=== PATIENT | male | born 1975 | race African-American/Black ===

== ENCOUNTER 2021-04-25 18:26 | Inpatient (IN) ==
[2021-04-25] MEDS ORDERED: Isovue-370 500 ML BOTTLE IVP ONE (21:18)
[2021-04-25 21:44] LABS: Basophils % 0.2 %; Eosinophils # 0.1 K/mcL (0.0-0.6); Eosinophils % 0.6 %; Hematocrit 28.6 % (37.5-50.1); Immature Granulocytes % 0.8 % (0-4); Lymphocytes # 1.3 K/mcL (0.6-4.6); Lymphocytes % 8.3 %; Mean Corpuscular HGB Conc 31.5 g/dL (31.6-35.5); Mean Corpuscular Hemoglobin 27.8 pg (28.0-33.3); Mean Corpuscular Volume 88.3 fL (83.0-100.0); Mean Platelet Volume 10.3 fL (9.4-12.4); Monocytes # 1.6 K/mcL (0.0-1.3); Monocytes % 10.1 %; Neutrophils # 12.6 K/mcL (1.6-8.9); Platelet Count 244 K/mcL (140-400); Red Blood Count 3.24 M/mcL (4.19-5.50); Red Cell Distribution Width 13.3 % (11.5-14.5)
[2021-04-25 21:46] LABS: White Blood Count 15.8 K/mcL (4.3-11.1)
[2021-04-25] MEDS ORDERED: 0.9 % Sodium Chloride 1,000 ML IVC ONE (21:58)
[2021-04-25] MEDS ORDERED: Ondansetron 4 MG/2 ML VIAL IVP ONE (21:58)
[2021-04-25] MEDS ORDERED: Morphine Sulfate 2 MG/ML SYRINGE IVP ONE (21:58)
[2021-04-25 22:06] LABS: Albumin 4.1 g/dL (3.5-5.7); Albumin/Globulin Ratio 0.8 (1.1-2.2); Bilirubin,Indirect 0.2 mg/dL (0.0-1.0); Bilirubin,Total 0.2 mg/dL (0.3-1.0); Calcium 9.3 mg/dL (8.6-10.3); Globulin 4.9 g/dL (2.4-3.5); Potassium 4.2 mEq/L (3.5-5.1)
[2021-04-25] MEDS ORDERED: MetroNIDAZOLE 500 MG/100 ML 500 MG/100 ML BAG IVPB ONE (23:41)
[2021-04-26] MEDS ORDERED: Naloxone 0.4 MG/ML INJ IVP PRN (00:13)
[2021-04-26] MEDS ORDERED: D5% in Water 1,000 ML IVC PRN (00:17)
[2021-04-26] MEDS ORDERED: Dextrose Gel 15 GM/37.5 ML TUBE PO PRN ×2 (00:17)
[2021-04-26] MEDS ORDERED: *HR* Dextrose 50 % in Water (Syg) 50 ML SYRINGE IVP PRN (00:17)
[2021-04-26] MEDS: Morphine Sulfate 2 MG/ML SYRINGE IVP PRN ×3 (02:53→20:40)
[2021-04-26] MEDS: Insulin LISPRO 300 UNITS/3 ML VIAL SUBQ SCH ×5 (02:54→20:31)
[2021-04-26] MEDS: 0.9 % Sodium Chloride 1,000 ML IVC SCH ×2 (03:01→11:15)
[2021-04-26 03:29] LABS: Bilirubin,Urine Negative (Negative); Blood,Urine Small (Negative); Clarity,Urine Clear (Clear); Color,Urine Colorless (Yellow); Glucose,Urine (UA) >=1000 mg/dL (Normal); Ketones,Urine Negative (Negative); Leukocyte Esterase,Urine Negative (Negative); Mucus,Urine Few per lpf (None-Few); Nitrite,Urine Negative (Negative); Protein,Urine 100 mg/dL (Neg-Trace); RBC,Urine 0-3 per hpf (0-3); Specific Gravity,Urine 1.023 (1.010-1.025); Urobilinogen,Urine Normal (Normal); WBC,Urine 0-3 per hpf (0-3)
[2021-04-26 04:31] LABS: Basophils % 0.1 %; Eosinophils % 0.1 %; Hematocrit 25.8 % (37.5-50.1); Hemoglobin 8.1 g/dL (12.9-16.9); Immature Granulocytes % 0.6 % (0-4); Lymphocytes # 1.6 K/mcL (0.6-4.6); Lymphocytes % 10.2 %; Mean Corpuscular HGB Conc 31.4 g/dL (31.6-35.5); Mean Corpuscular Hemoglobin 27.7 pg (28.0-33.3); Mean Corpuscular Volume 88.4 fL (83.0-100.0); Mean Platelet Volume 10.1 fL (9.4-12.4); Monocytes # 1.3 K/mcL (0.0-1.3); Monocytes % 8.7 %; Neutrophils # 12.3 K/mcL (1.6-8.9); Platelet Count 213 K/mcL (140-400); Red Blood Count 2.92 M/mcL (4.19-5.50); Red Cell Distribution Width 13.3 % (11.5-14.5); Segmented Neutrophils % 80.3 %; White Blood Count 15.3 K/mcL (4.3-11.1)
[2021-04-26 04:43] LABS: INR 1.3
[2021-04-26 04:48] LABS: Calcium 8.5 mg/dL (8.6-10.3); Magnesium 1.6 mg/dL (1.6-2.6); Potassium 3.9 mEq/L (3.5-5.1)
[2021-04-26 06:13] LABS: Estimated Average Glucose 272 mg/dl; Hemoglobin A1C 11.1 %
[2021-04-26] MEDS: MetroNIDAZOLE 500 MG/100 ML 500 MG/100 ML BAG IVPB SCH ×3 (08:13→23:08)
[2021-04-26] MEDS: Metoprolol XL (24 HR) Succ 25 MG TAB.ER.24H PO SCH ×2 (10:23→20:32)
[2021-04-26] MEDS: Ondansetron 4 MG/2 ML VIAL IVP PRN (16:23)
[2021-04-27 05:51] LABS: Basophils % 0.1 %; Eosinophils # 0.2 K/mcL (0.0-0.6); Eosinophils % 1.1 %; Hematocrit 23.8 % (37.5-50.1); Hemoglobin 7.7 g/dL (12.9-16.9); Immature Granulocytes % 0.4 % (0-4); Lymphocytes # 1.9 K/mcL (0.6-4.6); Lymphocytes % 13.8 %; Mean Corpuscular HGB Conc 32.4 g/dL (31.6-35.5); Mean Corpuscular Hemoglobin 28.3 pg (28.0-33.3); Mean Corpuscular Volume 87.5 fL (83.0-100.0); Monocytes # 1.7 K/mcL (0.0-1.3); Monocytes % 12.3 %; Neutrophils # 9.7 K/mcL (1.6-8.9); Platelet Count 200 K/mcL (140-400); Red Blood Count 2.72 M/mcL (4.19-5.50); Segmented Neutrophils % 72.3 %; White Blood Count 13.4 K/mcL (4.3-11.1)
[2021-04-27 06:16] LABS: Calcium 8.3 mg/dL (8.6-10.3); Magnesium 1.7 mg/dL (1.6-2.6); Potassium 3.7 mEq/L (3.5-5.1)
[2021-04-27] MEDS: Insulin LISPRO 300 UNITS/3 ML VIAL SUBQ SCH ×4 (08:24→21:36)
[2021-04-27] MEDS: MetroNIDAZOLE 500 MG/100 ML 500 MG/100 ML BAG IVPB SCH ×3 (08:24→23:01)
[2021-04-27] MEDS: gemfibroziL 600 MG TABLET PO SCH ×2 (08:35→20:48)
[2021-04-27] MEDS: Metoprolol XL (24 HR) Succ 50 MG TAB.ER.24H PO SCH (08:35)
[2021-04-27] MEDS: Ondansetron 4 MG/2 ML VIAL IVP PRN (18:51)
[2021-04-27] MEDS ORDERED: Acetaminophen 325 MG TABLET PO PRN (20:42)
[2021-04-28 04:42] LABS: Basophils % 0.2 %; Eosinophils # 0.2 K/mcL (0.0-0.6); Eosinophils % 2.1 %; Hemoglobin 7.9 g/dL (12.9-16.9); Immature Granulocytes % 0.5 % (0-4); Lymphocytes # 1.9 K/mcL (0.6-4.6); Lymphocytes % 16.8 %; Mean Corpuscular HGB Conc 32.9 g/dL (31.6-35.5); Mean Corpuscular Hemoglobin 28.3 pg (28.0-33.3); Mean Platelet Volume 9.9 fL (9.4-12.4); Monocytes # 1.3 K/mcL (0.0-1.3); Monocytes % 11.4 %; Neutrophils # 7.6 K/mcL (1.6-8.9); Platelet Count 208 K/mcL (140-400); Red Blood Count 2.79 M/mcL (4.19-5.50); Red Cell Distribution Width 12.8 % (11.5-14.5); White Blood Count 11.1 K/mcL (4.3-11.1)
[2021-04-28 04:46] LABS: BUN/Creatinine Ratio 14 (6-26); Blood Urea Nitrogen 21 mg/dL (6-20); Calcium 8.5 mg/dL (8.6-10.3); Carbon Dioxide 19 mEq/L (23-29); Chloride 106 mEq/L (98-107); Glucose 132 mg/dL (70-105); Osmolality,Calculated 283 (280-300); Potassium 3.6 mEq/L (3.5-5.1); Sodium 134 mEq/L (136-145); eGFR For African Americans > 60 (> 60); eGFR For Non-African Americans 51 (> 60)
[2021-04-28] MEDS: Insulin LISPRO 300 UNITS/3 ML VIAL SUBQ SCH ×4 (08:43→20:52)
[2021-04-28] MEDS: gemfibroziL 600 MG TABLET PO SCH ×2 (08:44→20:55)
[2021-04-28] MEDS: MetroNIDAZOLE 500 MG/100 ML 500 MG/100 ML BAG IVPB SCH ×3 (08:44→23:58)
[2021-04-28] MEDS: Metoprolol XL (24 HR) Succ 50 MG TAB.ER.24H PO SCH (08:46)
[2021-04-29 02:38] LABS: Basophils % 0.3 %; Eosinophils # 0.2 K/mcL (0.0-0.6); Eosinophils % 2.3 %; Hemoglobin 8.1 g/dL (12.9-16.9); Immature Granulocytes % 0.5 % (0-4); Lymphocytes % 19.1 %; Mean Corpuscular HGB Conc 32.4 g/dL (31.6-35.5); Mean Corpuscular Hemoglobin 27.8 pg (28.0-33.3); Mean Corpuscular Volume 85.9 fL (83.0-100.0); Mean Platelet Volume 10.1 fL (9.4-12.4); Monocytes # 1.2 K/mcL (0.0-1.3); Monocytes % 11.3 %; Platelet Count 244 K/mcL (140-400); Red Blood Count 2.91 M/mcL (4.19-5.50); Red Cell Distribution Width 12.9 % (11.5-14.5); Segmented Neutrophils % 66.5 %; White Blood Count 10.5 K/mcL (4.3-11.1)
[2021-04-29 02:57] LABS: BUN/Creatinine Ratio 16 (6-26); Blood Urea Nitrogen 23 mg/dL (6-20); Calcium 8.7 mg/dL (8.6-10.3); Carbon Dioxide 18 mEq/L (23-29); Chloride 104 mEq/L (98-107); Glucose 123 mg/dL (70-105); Osmolality,Calculated 283 (280-300); Potassium 3.7 mEq/L (3.5-5.1); Sodium 134 mEq/L (136-145); eGFR For African Americans > 60 (> 60); eGFR For Non-African Americans 52 (> 60)
[2021-04-29] MEDS: Insulin LISPRO 300 UNITS/3 ML VIAL SUBQ SCH ×4 (08:01→21:20)
[2021-04-29] MEDS: gemfibroziL 600 MG TABLET PO SCH ×2 (08:01→21:10)
[2021-04-29] MEDS: Metoprolol XL (24 HR) Succ 50 MG TAB.ER.24H PO SCH (08:01)
[2021-04-29] MEDS: MetroNIDAZOLE 500 MG/100 ML 500 MG/100 ML BAG IVPB SCH (08:01)
[2021-04-29 11:26] LABS: Adenovirus F 40/41 PCR Not detected (Not detect); Astrovirus PCR Not detected (Not detect); Campylobacter by PCR Not detected (Not detect); Cryptosporidium by PCR Not detected (Not detect); Cyclospora cayetanensis PCR Not detected (Not detect); E. coli O157 by PCR Not detected (Not detect); Entamoeba histolytica PCR Not detected (Not detect); Enteroaggregative E.coli(EAEC) Not detected (Not detect); Enteropathogenic E.coli(EPEC) Not detected (Not detect); Enterotoxigenic E.coli (ETEC) Not detected (Not detect); Giardia lamblia PCR Not detected (Not detect); Norovirus GI/GII PCR Not detected (Not detect); Plesiomonas shigelloides PCR Not detected (Not detect); Rotavirus A PCR Not detected (Not detect); Salmonella PCR Not detected (Not detect); Sapovirus PCR Not detected (Not detect); Shig/EnteroinvasiveE coli EIEC Not detected (Not detect); Shigalike tox-prod E coli STEC Not detected (Not detect); Vibrio PCR Not detected (Not detect); Vibrio cholerae PCR Not detected (Not detect); Yersinia enterocolitica PCR Not detected (Not detect)
[2021-04-29 11:28] LABS: C.difficile Toxin A/B Gene PCR DETECTED (Not detect)
[2021-04-29] MEDS: Vancomycin Oral Soln 125 MG/2.5 ML UDC PO SCH ×4 (12:04→21:11)
[2021-04-30 06:30] LABS: Basophils % 0.2 %; Eosinophils # 0.2 K/mcL (0.0-0.6); Eosinophils % 2.7 %; Hematocrit 26.1 % (37.5-50.1); Hemoglobin 8.3 g/dL (12.9-16.9); Immature Granulocytes % 0.6 % (0-4); Lymphocytes # 1.9 K/mcL (0.6-4.6); Lymphocytes % 21.2 %; Mean Corpuscular HGB Conc 31.8 g/dL (31.6-35.5); Mean Corpuscular Hemoglobin 26.9 pg (28.0-33.3); Mean Corpuscular Volume 84.7 fL (83.0-100.0); Mean Platelet Volume 9.6 fL (9.4-12.4); Monocytes # 1.1 K/mcL (0.0-1.3); Monocytes % 12.6 %; Neutrophils # 5.5 K/mcL (1.6-8.9); Platelet Count 247 K/mcL (140-400); Red Blood Count 3.08 M/mcL (4.19-5.50); Red Cell Distribution Width 13.1 % (11.5-14.5); Segmented Neutrophils % 62.7 %; White Blood Count 8.7 K/mcL (4.3-11.1)
[2021-04-30 06:53] LABS: BUN/Creatinine Ratio 15 (6-26); Blood Urea Nitrogen 20 mg/dL (6-20); Calcium 8.7 mg/dL (8.6-10.3); Carbon Dioxide 19 mEq/L (23-29); Chloride 104 mEq/L (98-107); Glucose 175 mg/dL (70-105); Osmolality,Calculated 281 (280-300); Potassium 3.7 mEq/L (3.5-5.1); Sodium 132 mEq/L (136-145); eGFR For African Americans > 60 (> 60); eGFR For Non-African Americans 58 (> 60)
[2021-04-30 08:13] VITALS: BP 141/93; PULSE 99; TEMP 98; O2SAT 94
[2021-04-30] MEDS: gemfibroziL 600 MG TABLET PO SCH (08:32)
[2021-04-30] MEDS: Vancomycin Oral Soln 125 MG/2.5 ML UDC PO SCH (08:32)
[2021-04-30] MEDS: Metoprolol XL (24 HR) Succ 50 MG TAB.ER.24H PO SCH (08:32)
[2021-04-30] MEDS: Insulin LISPRO 300 UNITS/3 ML VIAL SUBQ SCH (08:32)
== END 2021-04-30 11:23 | disposition home or self-care (01) | DRG 872 ==
LOC: EMEROOARM 18:26 → 3ANU 18:26 → OBSVTOIN 04-26 00:11 → SUATTDRO 04-26 00:11 → 3ANU 04-26 00:37
PROVIDERS: ADMIT Student in an Organized Health Care Education/Training Program; ATTEND Internal Medicine

== ENCOUNTER 2021-07-16 05:21 | Observation (INO) ==
[2021-07-16 06:28] LABS: Basophils % 0.1 %; Hematocrit 30.4 % (37.5-50.1); Hemoglobin 9.5 g/dL (12.9-16.9); Immature Granulocytes % 1.2 % (0-4); Lymphocytes # 1.7 K/mcL (0.6-4.6); Lymphocytes % 8.1 %; Mean Corpuscular HGB Conc 31.3 g/dL (31.6-35.5); Mean Corpuscular Hemoglobin 25.5 pg (28.0-33.3); Mean Corpuscular Volume 81.7 fL (83.0-100.0); Mean Platelet Volume 10.2 fL (9.4-12.4); Monocytes # 2.6 K/mcL (0.0-1.3); Monocytes % 12.3 %; Neutrophils # 16.4 K/mcL (1.6-8.9); Platelet Count 254 K/mcL (140-400); Red Blood Count 3.72 M/mcL (4.19-5.50); Red Cell Distribution Width 13.7 % (11.5-14.5); Segmented Neutrophils % 78.3 %
[2021-07-16 06:29] LABS: White Blood Count 20.9 K/mcL (4.3-11.1)
[2021-07-16 06:39] LABS: BUN/Creatinine Ratio 14 (6-26); Blood Urea Nitrogen 23 mg/dL (6-20); Carbon Dioxide 12 mEq/L (23-29); Chloride 104 mEq/L (98-107); Glucose 366 mg/dL (70-105); Osmolality,Calculated 271 (280-300); Potassium 4.9 mEq/L (3.5-5.1); Sodium 121 mEq/L (136-145); eGFR For African Americans 56 (> 60); eGFR For Non-African Americans 47 (> 60)
[2021-07-16] MEDS ORDERED: 0.9 % Sodium Chloride 1,000 ML IVC ONE ×2 (07:46→09:24)
[2021-07-16] MEDS ORDERED: Ondansetron 4 MG/2 ML VIAL IVP ONE (07:46)
[2021-07-16 08:52] LABS: Influenza A PCR Negative (Negative); Influenza B PCR Negative (Negative); Resp. Syncytial Virus PCR Negative (Negative); SARS-CoV-2 by PCR (In House) Negative (Negative)
[2021-07-16 10:18] LABS: Alanine Aminotransferase < 3 Units/L (7-52); Albumin 3.9 g/dL (3.5-5.7); Albumin/Globulin Ratio 0.8 (1.1-2.2); Alkaline Phosphatase 44 Units/L (34-104); Aspartate Amino Transferase 16 Units/L (13-39); Bilirubin,Direct 0.1 mg/dL (0.0-0.2); Bilirubin,Indirect 0.2 mg/dL (0.0-1.0); Bilirubin,Total 0.3 mg/dL (0.3-1.0); Globulin 5.2 g/dL (2.4-3.5); Total Protein 9.1 g/dL (6.4-8.9)
[2021-07-16 10:50] LABS: Bilirubin,Urine Negative (Negative); Blood,Urine Moderate (Negative); Clarity,Urine Clear (Clear); Color,Urine Light-Yellow (Yellow); Glucose,Urine (UA) >=1000 mg/dL (Normal); Hyaline Casts,Urine Moderate per lpf (None Seen); Ketones,Urine 20 mg/dL (Negative); Leukocyte Esterase,Urine Negative (Negative); Nitrite,Urine Negative (Negative); Protein,Urine >=300 mg/dL (Neg-Trace); Squamous Epithelial Cell,Urine Few per hpf (None-Few); Urobilinogen,Urine Normal (Normal); WBC,Urine 0-3 per hpf (0-3)
[2021-07-16] MEDS ORDERED: Naloxone 0.4 MG/ML INJ IVP PRN (11:07)
[2021-07-16] MEDS ORDERED: Dextrose Gel 15 GM/37.5 ML TUBE PO PRN ×2 (11:09)
[2021-07-16] MEDS ORDERED: *HR* Dextrose 50 % in Water (Syg) 50 ML SYRINGE IVP PRN (11:09)
[2021-07-16] MEDS ORDERED: D5% in Water 1,000 ML IVC PRN (11:09)
[2021-07-16] MEDS ORDERED: *HR* OxyCODONE Oral Soln 5 MG/5 ML UD.LIQ PO PRN (11:24)
[2021-07-16 12:14] LABS: Lipase 29 Units/L (11-82)
[2021-07-16 14:22] LABS: BUN/Creatinine Ratio 16 (6-26); Blood Urea Nitrogen 23 mg/dL (6-20); Carbon Dioxide 16 mEq/L (23-29); Chloride 106 mEq/L (98-107); Glucose 311 mg/dL (70-105); Osmolality,Calculated 281 (280-300); Sodium 128 mEq/L (136-145); eGFR For African Americans > 60 (> 60); eGFR For Non-African Americans 52 (> 60)
[2021-07-16] MEDS: *HR* Heparin 5,000 UNIT/ML VIAL SQ SCH ×2 (15:30→23:41)
[2021-07-16] MEDS: Ondansetron 4 MG/2 ML VIAL IVP PRN (16:09)
[2021-07-16] MEDS: Amoxicillin/Clavulanate 500 MG TABLET PO SCH ×2 (17:10→21:12)
[2021-07-16] MEDS: Pantoprazole 40 MG VIAL IVP SCH (17:10)
[2021-07-16] MEDS ORDERED: Insulin LISPRO 300 UNITS/3 ML VIAL SUBQ SCH (21:00)
[2021-07-16] MEDS: Insulin LISPRO 300 UNITS/3 ML VIAL SUBQ SCH ×2 (21:05→21:08)
[2021-07-16] MEDS: gemfibroziL 600 MG TABLET PO SCH (21:13)
[2021-07-17] MEDS: Ondansetron 4 MG/2 ML VIAL IVP PRN (03:38)
[2021-07-17 05:28] LABS: Basophils % 0.1 %; Eosinophils % 0.2 %; Hematocrit 24.5 % (37.5-50.1); Immature Granulocytes % 0.8 % (0-4); Lymphocytes # 1.7 K/mcL (0.6-4.6); Lymphocytes % 11.2 %; Mean Corpuscular HGB Conc 31.8 g/dL (31.6-35.5); Mean Corpuscular Hemoglobin 25.6 pg (28.0-33.3); Mean Corpuscular Volume 80.3 fL (83.0-100.0); Monocytes # 1.8 K/mcL (0.0-1.3); Monocytes % 12.2 %; Neutrophils # 11.2 K/mcL (1.6-8.9); Platelet Count 255 K/mcL (140-400); Red Blood Count 3.05 M/mcL (4.19-5.50); Red Cell Distribution Width 13.7 % (11.5-14.5); Segmented Neutrophils % 75.5 %; White Blood Count 14.9 K/mcL (4.3-11.1)
[2021-07-17 05:31] LABS: Hemoglobin 7.8 g/dL (12.9-16.9)
[2021-07-17 05:44] LABS: BUN/Creatinine Ratio 17 (6-26); Blood Urea Nitrogen 25 mg/dL (6-20); Calcium 8.2 mg/dL (8.6-10.3); Carbon Dioxide 17 mEq/L (23-29); Chloride 104 mEq/L (98-107); Glucose 206 mg/dL (70-105); Magnesium 1.8 mg/dL (1.6-2.6); Osmolality,Calculated 282 (280-300); Potassium 3.8 mEq/L (3.5-5.1); Sodium 131 mEq/L (136-145); eGFR For African Americans > 60 (> 60); eGFR For Non-African Americans 52 (> 60)
[2021-07-17] MEDS: Pantoprazole 40 MG VIAL IVP SCH (06:02)
[2021-07-17] MEDS: *HR* Heparin 5,000 UNIT/ML VIAL SQ SCH (06:03)
[2021-07-17 07:14] VITALS: BP 149/79; PULSE 102; TEMP 98.8; O2SAT 94
[2021-07-17] MEDS ORDERED: Metoprolol XL (24 HR) Succ 50 MG TAB.ER.24H PO SCH (09:00)
[2021-07-17] MEDS ORDERED: amLODIPine 5 MG TABLET PO SCH (09:00)
[2021-07-17] MEDS: Insulin LISPRO 300 UNITS/3 ML VIAL SUBQ SCH (09:16)
[2021-07-17] MEDS: Amoxicillin/Clavulanate 500 MG TABLET PO SCH (09:17)
[2021-07-17] MEDS: gemfibroziL 600 MG TABLET PO SCH (09:18)
[2021-07-17 09:26] LABS: Hematocrit 25.1 % (37.5-50.1); Hemoglobin 8.2 g/dL (12.9-16.9)
[2021-07-17 09:50] LABS: Calcium 8.2 mg/dL (8.6-10.3); Potassium 3.8 mEq/L (3.5-5.1)
== END 2021-07-17 14:56 | disposition home or self-care (01) ==
LOC: 3ANU 05:21 → EMEROOARM 05:21 → SUATTDRO 16:48 → 3ANU 17:19
PROVIDERS: ADMIT Family Medicine; ATTEND Internal Medicine